=== PATIENT | female | born 1980 | race Caucasian/White ===

== ENCOUNTER 2018-07-29 10:10 | Inpatient (IN) | payer OTHER ==
[~2018-07-29] VITALS: Ht 165.1 cm; Wt 77.1 kg
[2018-07-29] MEDS ORDERED: OXYTOCIN 30 UNITS/LACT RINGERS 500 ML IV PRN (13:47)
[2018-07-29] MEDS ORDERED: RINGERS SOLUTION,LACTATED 1,000 ML IV SCH (13:47)
[2018-07-29] MEDS ORDERED: RINGERS SOLUTION,LACTATED 1,000 ML IV PRN (13:47)
[2018-07-29] MEDS ORDERED: FentaNYL CITRATE-PF 100 MCG/2 ML VIAL IVP PRN (14:00)
[2018-07-29] MEDS ORDERED: METOCLOPRAMIDE HCL 5 MG/ML 2 ML VIAL IVP PRN (14:00)
[2018-07-29] MEDS ORDERED: CITRIC ACID/SODIUM CITRATE 30 ML SOLUTION UDCUP PO PRN (14:00)
[2018-07-29 14:22] VITALS: BP 114/64
[2018-07-29 14:42] LABS: BASOPHILS % (AUTO) 0.4 % (0.0-2.0); EOSINOPHILS % (AUTO) 1.3 % (1.0-6.0); HEMATOCRIT 35.1 % (36-46); HEMOGLOBIN 11.5 g/dL (12.0-16.0); LYMPHOCYTES # (AUTO) 1.3 K/uL (1.0-4.8); LYMPHOCYTES % (AUTO) 18.7 % (22.0-44.0); MEAN CORPUSCULAR HEMOGLOBIN 24.3 pg (26.0-34.0); MEAN CORPUSCULAR HGB CONC 32.7 G/dL (31.0-37.0); MEAN CORPUSCULAR VOLUME 74 fL (80-100); MONOCYTES # (AUTO) 0.6 K/uL (0.1-1.0); MONOCYTES % (AUTO) 8.2 % (2.0-9.0); NEUTROPHILS % (AUTO) 71.4 % (40.0-70.0); PLATELET COUNT (AUTO)-OB 124 K/uL (150-450); RED BLOOD CELL COUNT(AUTO) 4.74 MIL/uL (4.00-5.20); RED CELL DISTRIBUTION WIDTH 16.7 % (11.5-14.5)
[2018-07-29] MEDS ORDERED: OXYGEN THERAPY IH SCH (20:00)
[2018-07-29] MEDS ORDERED: ROPIVACAINE HCL/PF 0.2% 100 ML ED ONE (20:41)
[2018-07-29] MEDS ORDERED: ROPIVACAINE HCL/PF 0.2% 100 ML ED PRN (21:04)
[2018-07-29] MEDS ORDERED: DiphenhydrAMINE HCL 50 MG/ML VIAL IVP PRN (21:15)
[2018-07-29] MEDS ORDERED: ONDANSETRON HCL 4 MG/2 ML VIAL IVP PRN (21:15)
[2018-07-29] MEDS ORDERED: NALBUPHINE HCL 10 MG/ML VIAL IVP PRN (21:15)
[2018-07-30] MEDS ORDERED: BENZOCAINE 20%/MENTHOL 56 GM SPRAY CANISTER TP PRN (00:30)
[2018-07-30] MEDS ORDERED: GLYCERIN/WITCH HAZEL LEAF 40 PADS JAR TP PRN (00:30)
[2018-07-30] MEDS ORDERED: LANOLIN 7 GM OINTMENT TP PRN (00:30)
[2018-07-30] MEDS ORDERED: ACETAMINOPHEN/CODEINE 300-30 MG TABLET PO PRN ×2 (00:30)
[2018-07-30] MEDS ORDERED: PHYTONADIONE 1 MG/0.5 ML AMP ONE (00:32)
[2018-07-30] MEDS ORDERED: ERYTHROMYCIN 0.5% 1 GM TUBE OPHTHALMIC OINTMENT ONE (00:32)
[2018-07-30] MEDS ORDERED: MISOPROSTOL 100 MCG TABLET PO ONE (00:45)
[2018-07-30] MEDS ORDERED: IBUPROFEN 800 MG TABLET PO SCH (02:00)
[2018-07-30] MEDS: IBUPROFEN 800 MG TABLET PO SCH ×3 (05:18→20:07)
[2018-07-30] MEDS: MAGNESIUM HYDROXIDE SUSPENSION 30 ML UDCUP PO SCH ×2 (11:34→23:09)
[2018-07-31] MEDS: IBUPROFEN 800 MG TABLET PO SCH (02:38)
[2018-07-31] MEDS ORDERED: SENNA/DOCUSATE SODIUM 8.6-50 MG TABLET PO ONE (07:30)
[2018-07-31] MEDS ORDERED: IBUP-2070 PO (11:58)
[2018-07-31] MEDS ORDERED: DSS100 PO (11:59)
[2018-07-31] MEDS ORDERED: FERR-89 PO (12:01)
== END 2018-07-31 14:00 | disposition home or self-care (01) | DRG 807 ==
LOC: 4S 10:10 → OBSVTOIN 10:10 → INTOOBSV 10:10 → UNDOADMOB 10:47 → 4S 10:47 → OBSVTOIN 10:47
PROVIDERS: ADMIT Obstetrics & Gynecology; ATTEND Obstetrics & Gynecology
PROC: 10D07Z6 Extraction of Products of Conception, Vacuum, Via Natural or Artificial Opening (ICD-10-PCS; principal; 2018-07-30)
PROC: 0KQM0ZZ Repair Perineum Muscle, Open Approach (ICD-10-PCS; 2018-07-30)
PROC: 3E0R3BZ Introduction of Anesthetic Agent into Spinal Canal, Percutaneous Approach (ICD-10-PCS; 2018-07-30)
PROC: 00HU33Z Insertion of Infusion Device into Spinal Canal, Percutaneous Approach (ICD-10-PCS; 2018-07-30)
DX: O71.82 Other specified trauma to perineum and vulva (principal); Z37.0 Single live birth; Z3A.39 39 weeks gestation of pregnancy
CPT/HCPCS: 86850; 86900; 86901; J2590; J2795; J3430; J7120